=== PATIENT | male | born 1960 | race Caucasian/White ===

== ENCOUNTER → 2016-11-02 | Outpatient (CLI) | payer MEDICARE ==
[~2016-11-02] MED LIST: CIPROFLOXACIN500 MG PO; CLOPIDOGREL75 M2 PO; CYMBALTA60 M1 PO; DIAZEPAM10 M1 PO; GABAPENTIN300 M1 PO; KEFLEX 500MG.500 MG PO; LACTULOSE10 GM/15 M PO; LASIX 40MG. TAB40 MG PO; LISINOPRIL/HCTZ1 TA3 FT; LISINOPRIL/HCTZ1 TAB PO; MAALOX 30ML30 ML/UDC PO; METFORMIN HCL1000 MG PO; NEURONTIN600 MG PO; OXYCODONE HCL20 MG PO; OXYCODONE HCL30 MG PO; OXYCODONE HYDRO30 MG PO; PANTOPRAZOLE SO40 M1 PO; PERCOCET 10 MG1 EACH PO; PREVACID 30MG C30 M1 PO; SENNA LAXATIVE8.6 MG PO; SIMVASTATIN20 MG PO; ST. JOSEPH81 M1 PO; SUBOXONE 2 MG-01 TAB SL; TAMSULOSIN HYD0.4 M1 PO; VYTORIN 10 MG-21 TAB PO; ZETIA10 MG PO
[2016-11-02 18:38] LABS: HEMOGLOBIN 16.3 g/dL (14.1-18.0); LYMPH # 3.3 K/mm3 (0.7-4.5); LYMPH % 27.9 % (10-50)
[2016-11-02 20:19] LABS: BUN 8 mg/dL (7-18)
[2016-11-02 20:51] LABS: GFR (ESTIMATED) 77 ML/MIN (>60)
[2016-11-04 10:37] LABS: HBsAg Screen Negative (Negative); Hep A Ab, IgM Negative (Negative); Hep B Core Ab, IgM Negative (Negative); Hep C Virus Ab <0.1 (0.0-0.9)
== END ==
LOC: LAB 18:09
PROVIDERS: Emergency Medicine
DX: R53.83 Other fatigue (principal); Z79.899 Other long term (current) drug therapy